=== PATIENT | female | born 1975 | race Two or more races ===

== ENCOUNTER 2017-08-23 10:47 | Emergency (ER) | payer BC, SELFPAY ==
[2017-08-23] MEDS ORDERED: Ondansetron HCl/PF 4 MG/2 ML Vial ONE ×2 (11:14→11:49)
[2017-08-23] MEDS ORDERED: Ketorolac Tromethamine 30 MG/ML VIAL ONE (11:14)
[2017-08-23] MEDS ORDERED: Pantoprazole 40 MG VIAL ONE (11:16)
[2017-08-23 11:38] LABS: ALT (SGPT) 26 U/L (8-55); AST (SGOT) 15 U/L (5-34); Albumin 4.4 g/dL (3.5-5.0); Alkaline Phosphatase 137 U/L (40-150); Anion Gap 14 mmol/L (10-20); BUN (Urea Nitrogen) 7 mg/dL (7.0-18.7); Bilirubin, Total 0.4 mg/dL (0.2-1.2); Calc. Creatinine Clearance 0 mL/min (70-130); Calcium 9.9 mg/dL (7.8-10.44); Carbon Dioxide 20 mmol/L (22-29); Chloride 109 mmol/L (98-107); Estimated GFR-MDRD 77; Globulin 3.8 g/dL (2.4-3.5); Glucose 112 mg/dL (70-105); Hemoglobin 14.3 g/dL (12.0-16.0); Mean Corpuscular HGB CONC 34.7 g/dL (32.0-36.0); Mean Corpuscular Hemoglobin 30.5 pg (27.0-31.0); Mean Platelet Volume 6.1 fL (7.4-10.4); Platelet Count 543 thou/uL (130-400); Potassium 3.6 mmol/L (3.5-5.1); Protein, Total 8.2 g/dL (6.0-8.3); Red Blood Cell (RBC) Count 4.67 mill/uL (4.20-5.40); Sodium 139 mmol/L (136-145)
[2017-08-23 11:39] LABS: CKMB 0.4 ng/mL (0-6.6); Troponin I Less than 0.010 ng/mL (< 0.028)
[2017-08-23 11:49] LABS: Band 1 % (5-11); Eosinophils 1 % (0-10); Lymphocytes 18 % (21-51); MDiff Complete? YES; Monocytes 1 % (0-10); Neutrophil 79 % (42-75); PLT Morphology Comment Appears Increased; RBC Morphology Normal
[2017-08-23] MEDS ORDERED: Morphine 4 MG/ML Carpuject ONE ×2 (11:49→13:14)
[2017-08-23 12:17] LABS: Bilirubin Small (Negative); Blood, Urine Large (Negative); Clarity Slightly Cloudy (Clear); Glucose, Urine (Dipstick) Negative (Negative); Leukocyte Negative (Negative); Nitrite Negative (Negative); Protein, Urine (Dipstick) 100 mg/dL (Neg-Trace); Specific Gravity, Urine 1.025 (1.005-1.030); Urobilinogen 0.2 mg/dL (0.2-1.0)
[2017-08-23 12:19] LABS: Pregnancy Test - Urine (BHCG) Negative (Negative); Pregu Control Background? CLEAR/WHITE (CLR/WHITE); Pregu Control Bar Appear? YES (CONTROL BAR); Specific Gravity 1.025 (1.002-1.036)
[2017-08-23 12:26] LABS: Bacteria/HPF 1+ HPF (None Seen); Crystals/HPF 1+ AMORPH URATES HPF (Negative); Other Microscopic Description MOD MUCOUS STRANDS; Squamous Epithelial 0-3 HPF (0-3); WBC/HPF 0-3 HPF (0-3)
[2017-08-23] MEDS ORDERED: cefTRIAXone\\ROCEPHIN 1 GM VIAL ONE (13:14)
--- NOTE | 2017-08-23 13:55 | CT ---
CT ABDOMEN AND PELVIS WITHOUT CONTRAST: Date: 08-23-[address] of the abdomen and pelvis was done without oral or IV contrast for evaluation of epigastric pain with nausea and vomiting. Axial slices were acquired followed by coronal reconstructions. FINDINGS: The lung bases are clear, but there is a small right pleural effusion. The liver, spleen, pancreas, a drenal glands, kidneys and abdominal aorta appear normal within the limitations of a noncontrast stud y. The major finding on this study is multiple gallstones in the gallbladder, and some of them appear to be lodged in the neck of the gallbladder itself. While the size of the gallbladder is currently norm al and there is no streaking around it or gross wall thickening, I would still be suspicious that the stones in the neck are the etiology of the patient's symptoms. The bowel shows no distention, inflammatory change, or wall thickening. The mesenteric regions appear normal. There is no free air or free fluid seen. CT of the pelvis showed no pelvic masses, fluid collections, or inflammatory changes. The adnexal reg ions were unremarkable. IMPRESSION: 1. Multiple gallstones with some of the gallstones apparently lodged in the neck of the gallbladder. 2. Small right pleural effusion, possibly reactive to gallbladder disease. Findings discussed with Dr. Hughes at 1252 on 08-23-17. POS: HOME
== END 2017-08-23 13:31 | disposition short-term general hospital (02) ==
LOC: BURERS 10:47
DX: K80.00 Calculus of gallbladder with acute cholecystitis without obstruction (principal); F41.9 Anxiety disorder, unspecified; F17.210 Nicotine dependence, cigarettes, uncomplicated
CPT/HCPCS: 74176; 80053; 81003; 81015; 81025; 82553; 84484; 85025; 93005; 96374; 96375; 96376; C9113; J0696; J1885; J2270; J2405